=== PATIENT | female | born 1955 | race African-American/Black ===

== ENCOUNTER 2018-05-19 12:14 | Outpatient (CLI) | payer OTHER ==
--- NOTE | 2018-05-19 18:03 | RAD ---
LEFT KNEE FOUR VIEWS: 05/19/18 There is some mild medial joint space narrowing. Calcification is seen in the soft tissues adjacent t o the upper part of the medial femoral condyle. This may be a Cristiane-Stieda lesion which can some times signify ligamentous injury here, often with cruciate damage in the past as well. There is no janes int effusion currently. IMPRESSION: 1. Calcification adjacent to the medial femoral condyle. See discussion above. Old injury probab le. 2. Mild medial joint space narrowing. POS: HOME
== END 2018-05-19 12:15 | disposition home or self-care (01) ==
LOC: BURRAD 12:14
PROVIDERS: ATTEND Physician Assistant
DX: M25.562 Pain in left knee (principal); M17.12 Unilateral primary osteoarthritis, left knee; M25.862 Other specified joint disorders, left knee

== ENCOUNTER 2020-02-21 08:52 | Emergency (ER) | payer MEDICARE ==
[2020-02-21] MEDS ORDERED: Acetaminophen 325 MG TAB ONE (09:18)
--- NOTE | 2020-02-21 13:50 | RAD ---
LEFT HAND THREE VIEWS: Date: 02-21-2020 FINDINGS: Findings in the distal radius suggest a fracture extending into the radiocarpal joint. The distal uln a appears intact. The remainder of the hand and wrist appear normal. IMPRESSION: Distal radial fracture. POS: HOME
--- NOTE | 2020-02-21 14:33 | RAD ---
LEFT WRIST THREE VIEWS: Date: 02-21-2020 FINDINGS: A small bony fragment is seen along the radial styloid and there is a question of some lines in the a rticular surface of the distal radius. Fractures are presumed. On the film itself it is difficult to know if this new or old, but given the symptoms, one would have to presume acute. The distal ulna catrachita ears intact. The carpals were unremarkable, as were the metacarpals. IMPRESSION: Fracture of the distal radius, age indeterminate, but thought to be more likely new than old. Correla te with clinical exam. POS: HOME
== END 2020-02-21 09:35 | disposition home or self-care (01) ==
LOC: BURERS 08:52
DX: S52.502A Unspecified fracture of the lower end of left radius, initial encounter for closed fracture (principal); I10 Essential (primary) hypertension; Z79.899 Other long term (current) drug therapy; W01.0XXA Fall on same level from slipping, tripping and stumbling without subsequent striking against object, initial encounter

== ENCOUNTER 2020-05-02 08:15 | Emergency (ER) | payer MEDICARE | END 2020-05-02 08:50 | disposition home or self-care (01) | LOC: BURERS 08:15 | DX: M71.9 Bursopathy, unspecified (principal); E78.5 Hyperlipidemia, unspecified; I10 Essential (primary) hypertension | CPT/HCPCS: 99283 ==